=== PATIENT | female | born 1970 | race Caucasian/White ===

== ENCOUNTER 2020-05-04 10:36 | Day surgery (SDC) | payer OTHER ==
[~2020-05-04] VITALS: Ht 160 cm; Wt 144.1 kg
[~2020-05-04 10:36] MED LIST: ALBU8HFA IH; SODIUM CHLORIDE 0.9% 1,000 ML ONE
[2020-05-04] MEDS ORDERED: PROPOFOL 1% 20 ML VIAL IVP ONE (10:37)
[2020-05-04] MEDS ORDERED: SODIUM CHLORIDE 0.9% 1,000 ML IV ONE (11:00)
[2020-05-04 11:14] LABS: GLUCOMETER DEV NAME(LOC) SDS.; GLUCOSE,POINT OF CARE 107 MG/DL (70-110)
== END 2020-05-04 13:30 | disposition home or self-care (01) ==
LOC: SURGERY 10:36
PROVIDERS: ATTEND Student in an Organized Health Care Education/Training Program
DX: D12.3 Benign neoplasm of transverse colon (principal); K29.50 Unspecified chronic gastritis without bleeding; K57.30 Diverticulosis of large intestine without perforation or abscess without bleeding; K64.8 Other hemorrhoids; K29.70 Gastritis, unspecified, without bleeding; K44.9 Diaphragmatic hernia without obstruction or gangrene
CPT/HCPCS: 43239; 45385; 82962; 87635; 88305; 88312; 88313; C1769; J2704; J7030

== ENCOUNTER 2020-05-06 12:11 | Emergency (ER) | payer OTHER ==
[~2020-05-06] VITALS: Ht 160 cm; Wt 104.5 kg
[~2020-05-06 12:11] MED LIST changes: -SODIUM CHLORIDE 0.9% 1,000 ML ONE
[2020-05-06 12:19] VITALS: BP 141/60
== END 2020-05-06 15:47 | disposition home or self-care (01) ==
LOC: EMS 12:14
DX: R51 Headache (principal); Z53.21 Procedure and treatment not carried out due to patient leaving prior to being seen by health care provider